=== PATIENT | male | born 1995 | race Caucasian/White ===

== ENCOUNTER 2016-12-31 20:23 | Emergency (ER) | payer MEDICAID ==
[~2016-12-31] VITALS: Ht 170.2 cm; Wt 95.0 kg
[2016-12-31] MEDS ORDERED: KETOROLAC 60MG/2ML VIAL IM ONE (22:00)
[2016-12-31] MEDS ORDERED: HYDROCODONE/ACETAMINOPHEN 5/325MG TABLET PO ONE (22:45)
[2016-12-31 22:52] VITALS: BP 137/75
== END 2016-12-31 23:35 | disposition home or self-care (01) ==
LOC: ER 20:38
DX: S93.492A Sprain of other ligament of left ankle, initial encounter (principal); X58.XXXA Exposure to other specified factors, initial encounter; Y93.89 Activity, other specified; Y92.89 Other specified places as the place of occurrence of the external cause; Y99.8 Other external cause status; Z98.890 Other specified postprocedural states
CPT/HCPCS: 73610; 73630; 99284; J1885; Z7610